=== PATIENT | female | born 1955 | race Caucasian/White ===

== ENCOUNTER 2016-05-25 15:32 | Emergency (ER) | payer MEDICARE, MEDICAID ==
[~2016-05-25] VITALS: Ht 170.2 cm; Wt 100.0 kg
[~2016-05-25 15:32] MED LIST: ASPIRIN 81 LOW81 MG PO; LISINOPRIL10 MG PO; MELOXICAM7.5 MG PO; NEXIUM40 M1 PO; PENICILLN VK500 MG PO; PREDNISONE20 MG PO; ZOVIRAX400 MG PO
[2016-05-25] MEDS ORDERED: MEDDOSEPAK PO (16:01)
[2016-05-25] MEDS ORDERED: PERCOCET 5/321 COMBO PO (16:01)
[2016-05-25 16:09] VITALS: BP 118/68
== END 2016-05-25 16:20 | disposition home or self-care (01) ==
LOC: ED 15:32
DX: M25.541 Pain in joints of right hand (principal)

== ENCOUNTER 2016-09-17 20:45 | Emergency (ER) | payer MEDICARE, MEDICAID ==
[~2016-09-17] VITALS: Ht 157.5 cm; Wt 96.6 kg
[~2016-09-17 20:45] MED LIST changes: +MEDDOSEPAK PO; +PERCOCET 5/321 COMBO PO
[2016-09-17] MEDS ORDERED: AMOXICILLIN500 MG PO (21:39)
[2016-09-17] MEDS ORDERED: PERCOCET 5/321 COMBO PO (21:39)
[2016-09-17 21:46] VITALS: BP 134/61
== END 2016-09-17 21:55 | disposition home or self-care (01) ==
LOC: ED 20:45
DX: K04.7 Periapical abscess without sinus (principal); K08.89 Other specified disorders of teeth and supporting structures; S02.5XXA Fracture of tooth (traumatic), initial encounter for closed fracture

== ENCOUNTER 2017-03-31 10:41 | Day surgery (SDC) | payer MEDICARE, MEDICAID ==
[~2017-03-31] VITALS: Ht 157.5 cm; Wt 89.4 kg
[~2017-03-31 10:41] MED LIST changes: +AMOXICILLIN500 MG PO; +HYDROCODONE/ACE1 TAB PO; +OMEPRAZOLE10 MG PO
[2017-03-31 11:49] LABS: HEMATOCRIT 49.2 % (37.0-47.0); HEMOGLOBIN 16.8 g/dl (12.0-16.0); IMMATURE GRANULOCYTES 0.4 % (0.0-1.0); MEAN CELL VOLUME 91.6 fL CALC (80.0-100.0); MEAN CORPUSCULAR HGB 31.3 pG CALC (26.0-32.0); MEAN CORPUSCULAR HGB CONC 34.1 g/L CALC (32.0-36.0); NEUT# 4.15 thou/uL (2.00-7.15); RED BLOOD COUNT 5.37 mill/uL (4.20-5.60); RED CELL DISTRI WIDTH 13.2 % (11.5-15.5)
[2017-03-31] MEDS ORDERED: PERCOCET1 TA4 PO (17:42)
[2017-03-31 17:48] VITALS: BP 103/52
== END 2017-03-31 18:00 | disposition home or self-care (01) ==
LOC: ORM 10:41
PROVIDERS: ATTEND Orthopaedic Surgery
PROC: 0LX70ZZ Transfer Right Hand Tendon, Open Approach (ICD-10-PCS; principal; 2017-03-31)
DX: M19.041 Primary osteoarthritis, right hand (principal); I10 Essential (primary) hypertension
CPT/HCPCS: J1100

== ENCOUNTER 2017-11-22 23:30 | Emergency (ER) | payer MEDICARE, OTHER ==
[~2017-11-22] VITALS: Ht 157.5 cm; Wt 81.8 kg
[~2017-11-22 23:30] MED LIST changes: +PERCOCET1 TA4 PO
[2017-11-23 00:12] LABS: URINE BILIRUBIN - DIPSTICK NEGATIVE (NEGATIVE); URINE BLOOD DIPSTICK MODERATE (NEGATIVE); URINE COLOR YELLOW; URINE GLUCOSE - DIPSTICK NEGATIVE (NEGATIVE); URINE KETONE NEGATIVE (NEGATIVE); URINE LEUK ESTERASE NEGATIVE (NEGATIVE); URINE PH 5.5 (4.5-8.0); URINE PROTEIN - DIPSTICK NEGATIVE (NEG-TRACE); URINE SPECIFIC GRAVITY >=1.030; URINE UROBILINOGEN - DIPSTICK 0.2 E.U./dL (0.2)
[2017-11-23 00:15] LABS: URINE CLARITY CLOUDY; URINE NITRITE - DIPSTICK POSITIVE (Negative)
[2017-11-23 00:18] LABS: URINE BACTERIA MANY hpf; URINE MUCUS MODERATE hpf (NONE-FEW); URINE SQUAMOUS EPITHELIAL CELL MODERATE EPI/hpf (0-FEW)
[2017-11-23] MEDS ORDERED: CIPROFLOXACN500 MG PO (00:26)
[2017-11-23] MEDS ORDERED: ROBITUSSIN AC10 ML PO (00:26)
[2017-11-23 00:50] VITALS: BP 132/70
== END 2017-11-23 00:50 | disposition home or self-care (01) ==
LOC: ED 23:30
PROVIDERS: Emergency Medicine
DX: N39.0 Urinary tract infection, site not specified (principal); B96.20 Unspecified Escherichia coli [E. coli] as the cause of diseases classified elsewhere; J06.9 Acute upper respiratory infection, unspecified

== ENCOUNTER 2018-02-09 12:54 | Emergency (ER) | payer MEDICARE, OTHER ==
[~2018-02-09] VITALS: Ht 157.5 cm; Wt 85.9 kg
[~2018-02-09 12:54] MED LIST changes: +CIPROFLOXACN500 MG PO; +ROBITUSSIN AC10 ML PO
[2018-02-09] MEDS ORDERED: FLEXERIL5 M1 PO (14:31)
[2018-02-09] MEDS ORDERED: IBUPROFEN600 MG PO (14:31)
[2018-02-09] MEDS ORDERED: MEDDOSEPAK PO ×2 (14:36)
[2018-02-09 14:42] VITALS: BP 138/77
== END 2018-02-09 14:47 | disposition home or self-care (01) ==
LOC: ED 12:54
DX: G89.29 Other chronic pain (principal); M54.5 Low back pain

== ENCOUNTER 2018-02-13 00:45 | Emergency (ER) | payer MEDICARE, OTHER ==
[~2018-02-13] VITALS: Ht 157.5 cm; Wt 84.9 kg
[~2018-02-13 00:45] MED LIST changes: +FLEXERIL5 M1 PO; +IBUPROFEN600 MG PO
[2018-02-13 01:25] LABS: URINE BILIRUBIN - DIPSTICK NEGATIVE (NEGATIVE); URINE BLOOD DIPSTICK SMALL (NEGATIVE); URINE COLOR YELLOW; URINE GLUCOSE - DIPSTICK NEGATIVE (NEGATIVE); URINE KETONE NEGATIVE (NEGATIVE); URINE LEUK ESTERASE NEGATIVE (NEGATIVE); URINE NITRITE - DIPSTICK NEGATIVE (Negative); URINE PH 6.5 (4.5-8.0); URINE PROTEIN - DIPSTICK NEGATIVE (NEG-TRACE); URINE SPECIFIC GRAVITY 1.025
[2018-02-13 01:42] LABS: URINE CLARITY TURBID
[2018-02-13 01:43] LABS: URINE BACTERIA MANY hpf; URINE SQUAMOUS EPITHELIAL CELL FEW EPI/hpf (0-FEW); URINE WBC 0-2 WBC/hpf (0-5)
[2018-02-13 01:56] LABS: HEMATOCRIT 48.3 % (37.0-47.0); HEMOGLOBIN 16.3 g/dl (12.0-16.0); IMMATURE GRANULOCYTES 0.4 % (0.0-5.0); MEAN CELL VOLUME 92.5 fL CALC (80.0-100.0); MEAN CORPUSCULAR HGB 31.2 pG CALC (26.0-32.0); MEAN CORPUSCULAR HGB CONC 33.7 g/L CALC (32.0-36.0); NEUT# 5.06 thou/uL (2.00-7.15); RED BLOOD COUNT 5.22 mill/uL (4.20-5.60); RED CELL DISTRI WIDTH 13.2 % (11.5-15.5)
[2018-02-13 02:10] LABS: ALBUMIN 4.3 g/dL (3.2-5.0); ALKALINE PHOSPHATASE 129 u/l (38-126); AMYLASE 36 u/l (30-110); ANION GAP 14 (6-22 (CALC)); BILIRUBIN, TOTAL 0.4 mg/dL (0.0-1.4); BUN 18 mg/dL (8-23); BUN/CREATININE RATIO 26 (12-20 (CALC)); CARBON DIOXIDE 27 mmol/l (22-30); CHLORIDE 106 mmol/l (95-108); CREATININE 0.7 mg/dL (0.5-1.0); GFR > 60 ML/MIN (>=60 (CALC)); GFR FOR AFR.AMER. > 60 ML/MIN (>=60 (CALC)); LIPASE 62 u/l (23-300); SGOT/AST 24 u/l (9-36); SODIUM 144 mmol/l (137-146); TOTAL PROTEIN 8.2 g/dL (6.3-8.2)
[2018-02-13] MEDS ORDERED: LORTAB 1010 MG PO (03:24)
[2018-02-13] MEDS ORDERED: FLEXERIL PO (03:24)
[2018-02-13] MEDS ORDERED: CIPROFLOXACN500 MG PO (03:24)
[2018-02-13 03:30] VITALS: BP 155/80
== END 2018-02-13 03:38 | disposition home or self-care (01) ==
LOC: ED 00:45
PROVIDERS: Emergency Medicine
DX: N39.0 Urinary tract infection, site not specified (principal); M47.817 Spondylosis without myelopathy or radiculopathy, lumbosacral region; R10.32 Left lower quadrant pain

== ENCOUNTER 2018-02-27 16:19 | Emergency (ER) | payer MEDICARE, OTHER ==
[~2018-02-27 16:19] MED LIST changes: +FLEXERIL PO; +LORTAB 1010 MG PO
== END 2018-02-27 16:32 | disposition left against medical advice (07) ==
LOC: ED 16:19 → LWOBS 16:25 → ED 16:25
DX: Z91.19 Patient's noncompliance with other medical treatment and regimen (principal)

== ENCOUNTER 2019-01-28 12:47 | Emergency (ER) | payer MEDICARE, MEDICAID ==
[~2019-01-28] VITALS: Ht 157.5 cm; Wt 77.0 kg
[2019-01-28] MEDS ORDERED: OMEPRAZOLE20 M2 PO (13:47)
[2019-01-28 14:36] LABS: URINE BILIRUBIN - DIPSTICK NEGATIVE (NEGATIVE); URINE BLOOD DIPSTICK SMALL (NEGATIVE); URINE COLOR YELLOW; URINE GLUCOSE - DIPSTICK NEGATIVE (NEGATIVE); URINE KETONE TRACE mg/dL (NEGATIVE); URINE LEUK ESTERASE NEGATIVE (NEGATIVE); URINE PROTEIN - DIPSTICK 30 mg/dL (NEG-TRACE)
[2019-01-28 14:40] LABS: URINE NITRITE - DIPSTICK POSITIVE (Negative)
[2019-01-28 14:49] LABS: URINE BACTERIA MANY hpf; URINE SQUAMOUS EPITHELIAL CELL FEW EPI/hpf (0-FEW)
[2019-01-28] MEDS ORDERED: VENTOLIN HFA IN (15:26)
[2019-01-28] MEDS ORDERED: KEFLEX500 M1 PO (15:26)
[2019-01-28 15:32] VITALS: BP 107/59
== END 2019-01-28 15:43 | disposition home or self-care (01) ==
LOC: ED 12:47
DX: B34.9 Viral infection, unspecified (principal); N39.0 Urinary tract infection, site not specified; B96.20 Unspecified Escherichia coli [E. coli] as the cause of diseases classified elsewhere; R05 Cough